=== PATIENT | male | born 1975 | race Asian ===

== ENCOUNTER 2018-03-31 16:14 | Emergency (ER) | payer MEDICAID ==
[2018-03-31 16:51] LABS: ADD MAN DIFF? NO
[2018-03-31 16:55] LABS: BASOPHIL # 0.1 10^3/ul (0.0-0.1); BASOPHILS % 0.9 % (0.0-2.0); EOSINOPHILS # 0.5 10^3/ul (0.0-0.5); EOSINOPHILS % 7.4 % (0.0-7.0); HEMATOCRIT 42.4 % (42.0-52.0); HEMOGLOBIN 13.9 g/dl (14.0-18.0); LYMPHOCYTES # 2.5 10^3/ul (0.8-2.9); LYMPHOCYTES % 37.1 % (15.0-51.0); MEAN CORPUSCULAR HEMOGLOBIN 30.7 pg (29.0-33.0); MEAN CORPUSCULAR HGB CONC 32.8 g/dl (32.0-37.0); MEAN CORPUSCULAR VOLUME 93.6 fl (82.0-101.0); MEAN PLATELET VOLUME 9.9 fl (7.4-10.4); MONOCYTE # 0.5 10^3/ul (0.3-0.9); MONOCYTES % 6.8 % (0.0-11.0); NEUTROPHIL # 3.1 10^3/ul (1.6-7.5); NEUTROPHILS % 47.5 % (39.0-77.0); PLATELET COUNT 258 10^3/UL (140-415); RED BLOOD COUNT 4.53 10^6/ul (4.70-6.10); RED CELL DISTRIBUTION WIDTH 13.2 % (11.5-14.5)
[2018-03-31 16:55] LABS: WHITE BLOOD COUNT 6.6 10^3/ul (4.8-10.8)
[2018-03-31] MEDS: KETOROLAC 15 MG INJ IV (17:01)
[2018-03-31] MEDS: ONDANSETRON 4 MG INJ IV (17:01)
[2018-03-31] MEDS: SOD CHLORIDE 0.9% 1,000 ML IV (17:02)
[2018-03-31] MEDS: DIPHTH/TET/ACEL PERTUSS (ADULT) 0.5 ML VIAL IM* (17:06)
[2018-03-31] MEDS: OXYCODONE/ACETAMINOPHEN (5/325) TAB PO (17:06)
[2018-03-31 17:20] LABS: ANION GAP 12 (8-16); BLOOD UREA NITROGEN 12 mg/dl (7-20); CALCIUM 9.3 mg/dl (8.4-10.2); CARBON DIOXIDE 27 mmol/L (21-31); CHLORIDE 105 mmol/L (97-110); CREATININE 0.83 mg/dl (0.61-1.24); GLUCOSE 110 mg/dl (70-220); POTASSIUM 3.9 mmol/L (3.5-5.1); SODIUM 140 mmol/L (135-144)
[2018-03-31] MEDS: LIDOCAINE 1% (MDV) 10 ML INJ INJ (17:20)
[2018-03-31] MEDS: LIDOCAINE 1% (MDV) 20 ML INJ INJ (18:03)
[2018-03-31] MEDS: LIDOCAINE 1% (MDV) 20 ML INJ SC (18:03)
== END 2018-03-31 19:15 | disposition home or self-care (01) ==
LOC: E/R 16:14
DX: S51.011A Laceration without foreign body of right elbow, initial encounter (principal); S43.401A Unspecified sprain of right shoulder joint, initial encounter; S40.211A Abrasion of right shoulder, initial encounter; R40.2142 Coma scale, eyes open, spontaneous, at arrival to emergency department; R40.2252 Coma scale, best verbal response, oriented, at arrival to emergency department; R40.2362 Coma scale, best motor response, obeys commands, at arrival to emergency department; M25.511 Pain in right shoulder; V19.40XA Pedal cycle driver injured in collision with unspecified motor vehicles in traffic accident, initial encounter; Z23 Encounter for immunization
CPT/HCPCS: 12002; 36415; 71045; 73030-RT; 73080-RT; 73610; 80048; 85025; 90471; 90715; 96374; 96375; 99284-25